=== PATIENT | female | born 1975 | race Caucasian/White ===

== ENCOUNTER → 2016-12-23 | Outpatient (CLI) | payer MEDICAID, OTHER ==
[~2016-12-23] MED LIST: ACHYD1T PO; DCS100C PO; IBP800T PO; PREN1TAB39 PO
--- NOTE | 2016-12-23 17:27 | Diagnostic Imaging Report ---
INDICATION: survey. TECHNIQUE: Multiple real-time grayscale images were obtained over the gravid uterus. COMPARISON: None FINDINGS: heart rate is 150 beats per minute. The placenta is anterior. There is no placenta previa. The cervix is long and closed. Its exact length is difficult to estimate related to overlying myometrial contraction. Adequate amniotic fluid is seen. survey evaluation demonstrates unremarkable appearance of the four-chamber view, stomach, two umbilical arteries, bladder, no ventriculomegaly, and normal appearance of the cord insertion. The spine is not well seen particularly at the mid and lower segments due to position. Biometrical measurements are as follows: Biparietal 5.11 cm, age 21 weeks 4 days. 23rd percentile. Head circumference 19.44 cm, age 21 weeks 5 days. 20th percentile. Abdominal circumference 15.66 cm, age 20 weeks 6 days. This is a the 9th percentile. Femur length 3.62 cm, age 21 weeks 4 days. At 19th percentile. Sonographic estimate age: 21 weeks 3 days. Sonographic estimated date of delivery: 05/02/2017. Estimated Weight: 405 gm (+/- 59 gm). LMP percentile: 9%. heart rate: 150 beats per minute. number: 1 of 1. IMPRESSION: The spine is not well seen due to position. Reevaluation within two weeks is suggested. Dictated by: Dictated on workstation # [id number]
== END ==
LOC: RAD 13:52
PROVIDERS: ATTEND Obstetrics & Gynecology
DX: Z36 Encounter for antenatal screening of mother (principal); Z3A.21 21 weeks gestation of pregnancy
CPT/HCPCS: 76805

== ENCOUNTER 2017-04-20 08:00 | Inpatient (IN) | payer MEDICAID ==
[2017-04-20] VITALS (80 sets, daily range): BP systolic 72–135; BP diastolic 40–90
[~2017-04-20] VITALS: Ht 167.6 cm; Wt 100.7 kg
[2017-04-20] MEDS ORDERED: D5 LR IV SOLUTION 1,000 ML IV ONE (08:23)
[2017-04-20] MEDS ORDERED: LACTATED RINGERS 1,000 ML IV ONE ×2 (09:29→10:33)
[2017-04-20 09:30] LABS: BASOPHILS % (AUTO) 0 % (0-10); EOSINOPHILS # (AUTO) 0.1 10^3/uL (0.0-0.3); EOSINOPHILS % (AUTO) 1 % (0-10); HEMATOCRIT 34 % (35-52); HEMOGLOBIN 11.5 G/DL (11.5-16.0); LYMPHOCYTES # (AUTO) 1.9 X 10^3 (1.0-4.0); LYMPHOCYTES % (AUTO) 24 % (12-44); MEAN CORPUSCULAR HEMOGLOBIN 28 PG (25-34); MEAN CORPUSCULAR HGB CONC 34 G/DL (32-36); MEAN CORPUSCULAR VOLUME 84 FL (80-99); MONOCYTES # (AUTO) 0.6 X 10^3 (0.0-1.0); MONOCYTES % (AUTO) 7 % (0-12); NEUTROPHILS # (AUTO) 5.5 X 10^3 (1.8-7.8); NEUTROPHILS % (AUTO) 68 % (42-75); PLATELET COUNT 157 10^3/uL (130-400); RED BLOOD COUNT 4.07 10^6/uL (4.35-5.85); RED CELL DISTRIBUTION WIDTH 14.4 % (10.0-14.5); WHITE BLOOD COUNT 8.1 10^3/uL (4.3-11.0)
[2017-04-20] MEDS ORDERED: MINERAL OIL CONCENTRATE 99.9% 15 ML UDC TOP PRN (09:30)
[2017-04-20] MEDS ORDERED: SUFENTA 0.6MCG/ML BUPIVA 0.125 100 ML ONE (09:56)
[2017-04-20] MEDS ORDERED: BUPIVACAINE 0.25% 30 ML (SENSORCAINE) VIAL ONE (10:04)
[2017-04-20] MEDS ORDERED: LIDOCAINE PF 2% 5 ML (XYLOCAINE) VIAL ONE (10:04)
[2017-04-20] MEDS ORDERED: fentaNYL INJECTION 100 MCG/2 ML AMP ONE (10:05)
[2017-04-20] MEDS: EPIDURAL (SUFENTA 0.6MCG/ML BUPIVA 0.125%) 100 ML BAG EPI PRN ×2 (10:31→17:52)
[2017-04-20] MEDS ORDERED: ONDANSETRON 4 MG/2 ML (SDV) Z0FRAN IV PRN (10:45)
[2017-04-20] MEDS ORDERED: NALOXONE 0.4 MG/ML 1 ML (NARCAN) VIAL IV PRN (10:45)
[2017-04-20] MEDS ORDERED: diphenhydrAMINE 50 MG/ML INJ (BENADRYL) IV PRN (10:45)
[2017-04-20] MEDS ORDERED: TERBUTALINE INJ 1 MG/ML (BRETHINE) AMP SC NR (11:00)
[2017-04-20] MEDS ORDERED: OXYTOCIN/NORMAL SALINE 500 ML IV ONE (11:19)
--- NOTE | 2017-04-20 14:07 | Operative Report ---
Operative Report Date of Procedure/Surgery Apr 20, 2017 Surgeon (s) ESTRELLA TREADWELL DO Director Of Online Education (s): Betty Rodriguez APRN Post-Operative Diagnosis malpresentation, third trimester. Procedure Performed External cephalic version Description of Procedure Anesthesia Type: EPI Estimated blood loss (mL): none Specimen(s) collected/removed none Description of the Procedure Patient presents for external cephalic version scheduled at 39 weeks. She was found to be breech/transverse in the office last week. Consents have been signed. Risks and benefits of this procedure including potential complications were explained and and outlined in the patient's chart. Patient is brought complications risks and consent were obtained with written consents and description and discussion. Patient's adult daughter also serves as networking specialist as needed. IV was started and IV bolus was given. Patient then had an epidural placed. As the plan is to induce following version if this is successful or proceed with if not. She has not breakfast. She was given 0.2 mg subcutaneous terbutaline. She was then placed in the supine position and position was confirmed with an ultrasound with the head in the right upper quadrant and the breech in the left lower quadrant confirming a breech/oblique presentation. She was placed in the right supine down position and pillows and wedges were used to keep her in this position. I then removed the monitors. well-being was very good prior to removing these. She was having no contractions. I then used cornstarch to lubricate the abdomen. Then gently pushed the head into the vertex presentation. This was confirmed with ultrasound. This took approximately 3 minutes. well-being was reassuring afterwards and there was no evidence of fluid or rupture, bleeding, uterine rupture, distress. Patient was now examined vaginally and cervix still 1 cm, but I was able to artificially rupture membranes and place a scalp electrode. Pitocin will be started for labor augmentation. Patient and baby tolerated procedure well. Findings of the Procedure 42 year old at 39 weeks with malpresentation of fetus at 39 weeks. Allergies and Home Medications Allergies Coded Allergies: No Known Drug Allergies (Unverified , 10/04/11) Home Medications Docusate Sodium 100 Mg Capsule, 100 MG PO BID, (Reported) Hydrocodone Bit/Acetaminophen 1 Tab Tablet, 1-2 TAB PO Q 3 HRS NEEDED, ( Reported) Ibuprofen 800 Mg Tab, 800 MG PO Q 6HRS NEEDED, (Reported) Vits W-Ca,Fe,Fa(<1MG) 1 Each Tablet, 1 EACH PO DAILY, (Reported) ESTRELLA TREADWELL DO Apr 20, 2017 2:06 pm
--- NOTE | 2017-04-20 14:10 | Progress Note-Standard ---
Standard Progress Note Progress Notes/Assess & Plan Date Seen by Provider: Apr 20, 2017 Time Seen by Provider: 12:00 Progress/Assessment & Plan approximately 1 hour after version, patient reported she thought the FSE had moved. Bedside US confirmed that the head was again in the RUQ. I was able to easily move the head back to the vertex presentation without distress. We then placed maternity belts/abdominal binders to keep the baby in position. Pitocin has been started. Fluid is clear. Final Diagnosis Breech with version ESTRELLA TREADWELL DO Apr 20, 2017 2:10 pm
[2017-04-20] MEDS: LACTATED RINGERS 1,000 ML IV SCH (15:15)
[2017-04-20] MEDS: CATHETER FLUSH 10 ML SYR IV SCH ×2 (15:18→22:00)
[2017-04-20] MEDS: D5 LR IV SOLUTION 1,000 ML IV SCH (16:24)
[2017-04-20] MEDS: PROPRANOLOL 1 MG/ML (INDERAL) INJ IV PRN ×3 (20:18→21:32)
[2017-04-21] VITALS (77 sets, daily range): BP systolic 99–144; BP diastolic 51–87
[2017-04-21] MEDS: EPIDURAL (SUFENTA 0.6MCG/ML BUPIVA 0.125%) 100 ML BAG EPI PRN ×3 (01:06→16:18)
[2017-04-21] MEDS ORDERED: INFLUENZA TRIvalent 2017-2018 0.5 ML/45 MCG SYR IM ONE (07:00)
[2017-04-21] MEDS: D5 LR IV SOLUTION 1,000 ML IV SCH ×3 (08:10→16:18)
[2017-04-21] MEDS ORDERED: OXYTOCIN/NORMAL SALINE 500 ML IV ONE (14:26)
[2017-04-21] MEDS ORDERED: AMPICILLIN/SULBACTAM INJECTION 3 GM in NS (IVPB) 100 ML IV SCH (17:00)
[2017-04-21] MEDS ORDERED: CITRIC ACID/SOB CIT (BICITRA) 30 ML UDC ONE (18:10)
[2017-04-21] MEDS ORDERED: METOCLOPRAMIDE INJ 10 MG/2 ML (REGLAN) ONE (18:10)
[2017-04-21] MEDS ORDERED: FAMOTIDINE 20MG/2ML IV (PEPCID) ONE (18:11)
[2017-04-21] MEDS: LACTATED RINGERS 1,000 ML IV SCH (18:15)
[2017-04-21] MEDS ORDERED: LACTATED RINGERS 1,000 ML IV PRN (18:21)
[2017-04-21] MEDS ORDERED: AZITHROMYCIN 500 MG (ZITHROMAX) VIAL ONE (18:25)
[2017-04-21] MEDS ORDERED: NS (IVPB) 100 ML ONE (18:25)
[2017-04-21] MEDS ORDERED: FAMOTIDINE 20MG/2ML IV (PEPCID) IV ONE (18:30)
[2017-04-21] MEDS ORDERED: METOCLOPRAMIDE INJ 10 MG/2 ML (REGLAN) IV ONE (18:30)
[2017-04-21] MEDS ORDERED: CITRIC ACID/SOB CIT (BICITRA) 30 ML UDC PO ONE (18:30)
[2017-04-21] MEDS ORDERED: AZITHROMYCIN INJECTION 500 MG in NS (IVPB) 250 ML IV ONE (18:30)
--- NOTE | 2017-04-21 18:31 | Progress Note-Standard ---
Standard Progress Note Progress Notes/Assess & Plan Date Seen by Provider: Apr 21, 2017 Time Seen by Provider: 08:30 Progress/Assessment & Plan Patient had regular contractions throughout the day yesterday. well being has been very reassuring. However, little to no cervical change. IV propranolol given 2 mg x 1, 1 hour apart due to protracted labor. this did not improve the dilation. Stopped Pitocin overnight to allow her to rest. Contractions almost sopped. This am Pitocin was restarted. Currently at 6 mu. Cervix 3/50/-2. well being reassuring. Continue augmentation. Patient still continues to decline section. ESTRELLA TREADWELL DO Apr 21, 2017 18:31
--- NOTE | 2017-04-21 18:33 | Progress Note-Standard ---
Standard Progress Note Progress Notes/Assess & Plan Date Seen by Provider: Apr 21, 2017 Time Seen by Provider: 13:30 Progress/Assessment & Plan Patient ruptured > 24 hours but no evidence of chorioamnionitis. 4 cm dilated/ 60% effaced. Continues to have regular contractions. well being continues to be reassuring. 26 mu of pitocin. Will continue augmentation. continues to decline section. ESTRELLA TREADWELL DO Apr 21, 2017 18:33
[2017-04-21] MEDS ORDERED: fentaNYL INJECTION 100 MCG/2 ML AMP ONE (18:36)
[2017-04-21] MEDS ORDERED: BUPIVACAINE 0.5% 30 ML (SENSORCAINE) VIAL ONE (18:36)
[2017-04-21] MEDS ORDERED: LIDOCAINE PF 2% 5 ML (XYLOCAINE) VIAL ONE ×2 (18:36→19:34)
--- NOTE | 2017-04-21 18:36 | Progress Note-Standard ---
Standard Progress Note Progress Notes/Assess & Plan Date Seen by Provider: Apr 21, 2017 Time Seen by Provider: 18:20 Progress/Assessment & Plan Ruptured > 24 hours, continues to contract regularly Pitocin 50 mu greater than 1 hour. 4 cm dilated. T 99. Unasyn started. Will plan primary section due to arrest of dilation. Risks, bleeding, infection, injury to bowel bladder ureter and fetus. Consent signed. Has received Unasyn. Will give 500 mg IV Zithromax Temp 99.3 heart tones 140s ESTRELLA TREADWELL DO Apr 21, 2017 18:36
[2017-04-21] MEDS ORDERED: KETAMINE HCL 100 MG/ML 5 ML VIAL ONE (18:38)
[2017-04-21] MEDS: KETOROLAC 30 MG/ML VIAL IVP SCH (19:30)
[2017-04-21] MEDS ORDERED: OXYTOCIN/NORMAL SALINE 1,000 ML IV ONE (19:33)
[2017-04-21] MEDS ORDERED: KETOROLAC 30 MG/ML VIAL ONE (19:33)
[2017-04-21] MEDS ORDERED: PHENYLEPHRINE 100 MCG/ML 10 ML (ANESTHESIA) SYR ONE (19:43)
[2017-04-21] MEDS ORDERED: D5 LR IV SOLUTION 1,000 ML IV SCH (19:55)
[2017-04-21] MEDS ORDERED: OXYTOCIN/NORMAL SALINE 500 ML IV SCH (19:55)
[2017-04-21] MEDS ORDERED: MEASLES,MUMPS,RUBELLA 1 EA INJ SC SCH (20:00)
[2017-04-21] MEDS ORDERED: ONDANSETRON 4 MG/2 ML (SDV) Z0FRAN IVP PRN (20:00)
[2017-04-21] MEDS ORDERED: TETANUS,DIPTH,PERTUSS P/F (BOOSTRIX) 0.5 ML VIAL IM SCH (20:00)
[2017-04-21] MEDS ORDERED: HYDROmorphone (DILAUDID) 2 MG/ML VIAL IVP PRN (20:00)
--- NOTE | 2017-04-21 20:01 | Operative Report ---
Operative Report Date of Procedure/Surgery Apr 21, 2017 Surgeon (s) ESTRELLA TREADWELL DO Web Applications Programmer (s): Betty Rodriguez APRN Post-Operative Diagnosis protracted labor, arrest of dilatation, advanced maternal age > 40 malpresentation/unstable lie, chorioramnionitis Procedure Performed Primary low transverse section Description of Procedure Anesthesia Type: EPI Estimated blood loss (mL): 750 Specimen(s) collected/removed none Description of the Procedure The patient was seen in pre-op and the procedure was discussed with the patient in full, including the risks, benefits, and alternatives. All questions were answered. Her daughter assisted with interpretation (patient is deaf).The patient was taken to the operating room and a time out was performed, verifying patient and procedure. After epidural anesthesia was redosed and found to be adequate by our anesthesia colleagues, the patient was placed in the dorsal supine with leftward tilt for uterine displacement.~ Her abdomen was then prepped and draped in the typical sterile fashion. A Pfannenstiel skin incision was made using a scalpel and carried down through the underlying fascia. The fascia was incised in the midline and tented up using Rosalva clamps. On both the inferior and superior fascia side the rectus muscle was dissected off bluntly and sharply using [place] scissors. The peritoneum was identified and entered bluntly in the midline. This was then stretched laterally using manual strength. After entering the abdominal cavity and confirming lack of intraperitoneal adhesions, a large Umberto retractor was placed and the lower uterine segment was visualized. A scalpel was utilized to make a low transverse uterine incision. The fetus had been breech and had successful version. Abdominal binders were used to keep fetus in cephalic presentation. When cervix was checked most recently, fetus was still in cephalic presentation. However, the abdominal binder was removed. The infantwas now noted to be in the transverse back up presentation. The head was grasped and brought to the level of the incision. Silastic suction was placed on the head facilitating delivery of the head. Fundal pressure was applied and infant was delivered without difficulty. Mouth and nares were suctioned with bulb suction. After the umbilical cord was clamped and cut, the was handed off to the pediatric staff. Baby was vigorous and crying. A sample of cord blood was then obtained. The placenta was delivered intact via uterine massage. The uterus was exteriorized and cleared of all clots and debris. The uterine incision was closed using 0 Vicryl in a running locked fashion. A second imbricated layer was placed using 0 Vicryl in a running fashion as well. The uterus was flexed forward and the posterior rectouterine space was inspected and cleared of all clots and debris. Again the hysterotomy site was examined and hemostasis was observed. The bilateral tubes and ovaries appeared normal. The uterus was placed back into the abdominal cavity and abdominal gutters were cleared of all clots and debris. A final check of the uterine incision showed it to be hemostatic. The abdomen was copiously irrigated. The peritoneum was closed using 3-0 Vicryl in a running fashion. The fascia was closed with 0 Vicryl in a running fashion. The subcutaneous space was hemostatic, and irrigated. The subcutaneous space was closed with 3-0 Vicryl in several single interrupted stitches. The skin was then closed using 4-0 Monocryl in a running subcuticular fashion. The skin edges were reapproximated together and were hemostatic. A pressure dressing was applied. All sponge, lap and needle counts were correct at the end of the procedure per nursing. Findings of the Procedure viable female 10/03 8#9oz transverse back up Allergies and Home Medications Allergies Coded Allergies: No Known Drug Allergies (Unverified , 10/04/11) Home Medications Docusate Sodium 100 Mg Capsule, 100 MG PO BID, (Reported) Hydrocodone Bit/Acetaminophen 1 Tab Tablet, 1-2 TAB PO Q 3 HRS NEEDED, ( Reported) Ibuprofen 800 Mg Tab, 800 MG PO Q 6HRS NEEDED, (Reported) Vits W-Ca,Fe,Fa(<1MG) 1 Each Tablet, 1 EACH PO DAILY, (Reported) ESTRELLA TREADWELL DO Apr 21, 2017 20:01
[2017-04-21] MEDS: HYDROcodone/APAP 5 MG/325 MG (LORTAB) TAB PO PRN (21:33)
[2017-04-21] MEDS: DOCUSATE SODIUM 100 MG (COLACE) CAP PO SCH (21:33)
[2017-04-22] MEDS: KETOROLAC 30 MG/ML VIAL IVP SCH ×2 (01:18→09:15)
[2017-04-22] MEDS: AMPICILLIN/SULBACTAM INJECTION 3 GM in NS (IVPB) 100 ML IV SCH ×2 (01:19→09:15)
[2017-04-22 01:25] VITALS: BP 112/59
[2017-04-22 06:05] VITALS: BP 123/71
[2017-04-22 06:09] LABS: BASOPHILS % (AUTO) 0 % (0-10); EOSINOPHILS # (AUTO) 0.1 10^3/uL (0.0-0.3); EOSINOPHILS % (AUTO) 1 % (0-10); HEMATOCRIT 27 % (35-52); HEMOGLOBIN 8.9 G/DL (11.5-16.0); LYMPHOCYTES # (AUTO) 1.7 X 10^3 (1.0-4.0); LYMPHOCYTES % (AUTO) 15 % (12-44); MEAN CORPUSCULAR HEMOGLOBIN 28 PG (25-34); MEAN CORPUSCULAR HGB CONC 33 G/DL (32-36); MEAN CORPUSCULAR VOLUME 86 FL (80-99); MEAN PLATELET VOLUME 10.8 FL (7.4-10.4); MONOCYTES # (AUTO) 0.6 X 10^3 (0.0-1.0); MONOCYTES % (AUTO) 5 % (0-12); NEUTROPHILS % (AUTO) 79 % (42-75); PLATELET COUNT 129 10^3/uL (130-400); RED BLOOD COUNT 3.18 10^6/uL (4.35-5.85); RED CELL DISTRIBUTION WIDTH 14.5 % (10.0-14.5); WHITE BLOOD COUNT 11.3 10^3/uL (4.3-11.0)
[2017-04-22] MEDS: HYDROcodone/APAP 5 MG/325 MG (LORTAB) TAB PO PRN ×4 (06:39→21:35)
--- NOTE | 2017-04-22 08:54 | Postpartum Progress Note ---
Post Op Post-operative Day #1 s/p PLTCS , arrest of dilation Subjective: Patient is without complaints. Ambulating, voiding after schafer removed. Tolerating a regular diet without nausea or vomiting. Normal lochia. Pain is well controlled with oral pain medications. Passing flatus. breast feeding. [] Objective: Laboratory Tests Test 04/22/17 05:47 Range/Units White Blood Count 11.3 H 4.3-11.0 10^3/uL Red Blood Count 3.18 L 4.35-5.85 10^6/uL Hemoglobin 8.9 #L 11.5-16.0 G/DL Hematocrit 27 L 35-52 % Mean Corpuscular Volume 86 80-99 FL Mean Corpuscular Hemoglobin 28 25-34 PG Mean Corpuscular Hemoglobin Concent 33 32-36 G/DL Red Cell Distribution Width 14.5 10.0-14.5 % Platelet Count 129 L 130-400 10^3/uL Mean Platelet Volume 10.8 H 7.4-10.4 FL Neutrophils (%) (Auto) 79 H 42-75 % Lymphocytes (%) (Auto) 15 12-44 % Monocytes (%) (Auto) 5 0-12 % Eosinophils (%) (Auto) 1 0-10 % Basophils (%) (Auto) 0 0-10 % Neutrophils # (Auto) 9.0 H 1.8-7.8 X 10^3 Lymphocytes # (Auto) 1.7 1.0-4.0 X 10^3 Monocytes # (Auto) 0.6 0.0-1.0 X 10^3 Eosinophils # (Auto) 0.1 0.0-0.3 10^3/uL Basophils # (Auto) 0.0 0.0-0.1 10^3/uL Vital Sign - Last 12Hours 04/21/17 04/21/17 04/22/17 04/22/17 21:00 22:18 01:25 06:05 Temp 97.2 96.5 97.8 Pulse 108 100 93 Resp B/P (MAP) 109/62 (78) 112/59 (76) 123/71 (88) Pulse Ox 97 96 99 O2 Delivery Room Air Room Air Room Air Room Air Intake and Output 04/22/17 00:00 Intake Total 500 ml Output Total 1010 ml Balance -510 ml Physical Exam: General - Alert and oriented, no apparent distress Abdomen - Soft, appropriately tender to palpation, non-distended, fundus firm at umbilicus Incision - clean, dry and intact; no erythema or induration, no drainage Extremities - no edema, negative Kirit's bilaterally [] Assessment: 1. post-operative day # 1, status post PLTCS. Recovering well, hemodynamically stable 2. Acute blood loss anemia Plan: Routine post-operative care. Encourage breast feeding. Encourage ambulation. VTE prophylaxis: SCDs. Ferrous sulfate supplementation. Plan for discharge Wednesday or . Vitals - Labs Vital Signs - I&O Vital Signs Date Time Temp Pulse Resp B/P (MAP) Pulse Ox O2 Delivery O2 Flow Rate FiO2 04/22/17 06:05 97.8 93 18 123/71 (88) 99 Room Air 04/22/17 01:25 96.5 100 18 112/59 (76) 96 Room Air 04/21/17 22:18 Room Air 04/21/17 21:00 97.2 108 18 109/62 (78) 97 Room Air 04/21/17 18:45 117 20 144/87 (106) Room Air 04/21/17 18:35 99.5 04/21/17 18:30 111 20 139/69 (92) Room Air 04/21/17 18:15 102 20 132/63 (86) Room Air 04/21/17 18:00 89 18 134/68 (90) 99 Room Air 04/21/17 17:45 98.7 100 18 129/77 (94) 100 Room Air 04/21/17 17:30 89 18 120/61 (80) 98 Room Air 04/21/17 17:15 95 18 126/64 (84) 100 Room Air 04/21/17 17:03 99.3 04/21/17 17:00 88 18 116/58 (77) 100 Room Air 04/21/17 16:45 83 18 129/58 (81) 100 Room Air 04/21/17 16:30 99.3 83 18 106/58 (74) 98 Room Air 04/21/17 16:15 85 18 106/56 (73) 97 Room Air 04/21/17 16:00 86 18 104/57 (73) 96 Room Air 04/21/17 15:45 83 18 104/57 (73) 97 Room Air 04/21/17 15:30 99.3 96 18 122/64 (83) 99 Room Air 04/21/17 15:15 102 18 122/64 (83) 99 Room Air 04/21/17 15:00 96 18 117/55 (75) 98 Room Air 04/21/17 14:45 94 18 124/59 (80) 98 Room Air 04/21/17 14:30 93 18 120/63 (82) 98 Room Air 04/21/17 14:15 111 18 129/59 (82) 97 Room Air 04/21/17 14:00 99 18 125/55 (78) 99 Room Air 04/21/17 13:45 98.7 100 18 136/64 (88) 100 Room Air 04/21/17 13:30 91 18 112/60 (77) 100 Room Air 04/21/17 13:15 91 18 112/60 (77) 100 Room Air 04/21/17 13:00 88 18 115/65 (82) 100 Room Air 04/21/17 12:45 90 18 110/63 (79) 99 Room Air 04/21/17 12:30 97.2 86 18 122/63 (82) 98 Room Air 04/21/17 12:15 88 18 104/65 (78) 96 Room Air 04/21/17 12:00 81 18 105/64 (78) 92 Room Air 04/21/17 11:45 80 18 104/62 (76) 96 Room Air 04/21/17 11:30 88 18 100/65 (77) 98 Room Air 04/21/17 11:15 87 18 102/59 (73) 97 Room Air 04/21/17 11:00 85 18 107/58 (74) 98 Room Air 04/21/17 10:45 98.1 85 18 111/65 (80) 98 Room Air 04/21/17 10:30 84 18 108/64 (79) 96 Room Air 04/21/17 10:15 84 18 108/64 (79) 96 Room Air 04/21/17 10:00 96 18 108/64 (79) 98 Room Air 04/21/17 09:45 86 18 107/65 (79) 99 Room Air 04/21/17 09:30 86 18 112/56 (74) 99 Room Air 04/21/17 09:15 81 18 116/61 (79) 99 Room Air 04/21/17 09:00 86 18 123/57 (79) 100 Room Air I & O 04/22/17 07:00 Intake Total 2300 ml Output Total 1310 ml Balance 990 ml Labs Laboratory Tests 04/22/17 05:47: White Blood Count 11.3H, Red Blood Count 3.18L, Hemoglobin 8.9#L, Hematocrit 27L , Mean Corpuscular Volume 86, Mean Corpuscular Hemoglobin 28, Mean Corpuscular Hemoglobin Concent 33, Red Cell Distribution Width 14.5, Platelet Count 129L, Mean Platelet Volume 10.8H, Neutrophils (%) (Auto) 79H, Lymphocytes (%) (Auto) 15, Monocytes (%) (Auto) 5, Eosinophils (%) (Auto) 1, Basophils (%) (Auto) 0, Neutrophils # (Auto) 9.0H, Lymphocytes # (Auto) 1.7, Monocytes # (Auto) 0.6, Eosinophils # (Auto) 0.1, Basophils # (Auto) 0.0 ESTRELLA TREADWELL DO Apr 22, 2017 08:54
[2017-04-22 09:15] VITALS: BP 116/68
[2017-04-22] MEDS: FERROUS SULF 325 MG (IRON) TAB PO SCH (09:15)
[2017-04-22] MEDS: DOCUSATE SODIUM 100 MG (COLACE) CAP PO SCH ×2 (09:15→21:23)
[2017-04-22 14:05] VITALS: BP 114/64
--- NOTE | 2017-04-22 14:28 | Anesthesia-Regional Post-Op ---
Regional Patient Condition Mental Status: Alert, Oriented x3 Circulation: Same as Pre-Op Headache: Absent Sensation: Full Recovery Motor Block: Absent Post Op Complications Complications None Follow Up Care/Instructions Patient Instructions None needed. Anesthesia/Patient Condition Patient is doing well, no complaints, stable vital signs, no apparent adverse anesthesia problems. Epidural used for C/S without complications, pt ambulating without difficulty. DENISE OLIVAREZ DO Apr 22, 2017 14:28
[2017-04-22 16:45] VITALS: BP 111/68
[2017-04-22] MEDS: IBUPROFEN 600 MG (MOTRIN) TAB PO SCH (17:15)
[2017-04-22 21:25] VITALS: BP 115/65
[2017-04-23 00:15] VITALS: BP 120/70
[2017-04-23 01:15] VITALS: BP 120/70
[2017-04-23] MEDS: IBUPROFEN 600 MG (MOTRIN) TAB PO SCH ×5 (01:15→20:37)
[2017-04-23] MEDS: HYDROcodone/APAP 5 MG/325 MG (LORTAB) TAB PO PRN ×3 (01:55→23:43)
[2017-04-23 06:10] VITALS: BP 107/63
[2017-04-23] MEDS: FERROUS SULF 325 MG (IRON) TAB PO SCH ×4 (08:55→17:49)
[2017-04-23] MEDS: DOCUSATE SODIUM 100 MG (COLACE) CAP PO SCH ×2 (08:56→20:36)
[2017-04-23 11:20] VITALS: BP 121/81
[2017-04-23 15:51] VITALS: BP 151/86
[2017-04-23] MEDS: D5 LR IV SOLUTION 1,000 ML IV SCH (17:48)
[2017-04-23] MEDS: CATHETER FLUSH 10 ML SYR IV SCH (17:48)
[2017-04-23 20:37] VITALS: BP 125/83
[2017-04-24] MEDS: IBUPROFEN 600 MG (MOTRIN) TAB PO SCH ×5 (03:09→23:37)
[2017-04-24 03:13] VITALS: BP 129/76
[2017-04-24 08:45] VITALS: BP 122/71
[2017-04-24] MEDS: DOCUSATE SODIUM 100 MG (COLACE) CAP PO SCH ×2 (08:52→23:37)
[2017-04-24] MEDS: FERROUS SULF 325 MG (IRON) TAB PO SCH ×2 (08:52→23:37)
[2017-04-24] MEDS: HYDROcodone/APAP 5 MG/325 MG (LORTAB) TAB PO PRN ×2 (08:53→13:23)
[2017-04-24 13:25] VITALS: BP 131/72
--- NOTE | 2017-04-24 13:31 | Postpartum Progress Note ---
Post Op Patient seen and examined on 04/23/17 at 0900 Post-operative Day #2 s/p PLTCS Baby will not dc home today due to GBS, hyperbilirubinemia Subjective: Patient is without complaints. Ambulating, voiding after schafer removed. Tolerating a regular diet without nausea or vomiting. Normal lochia. Pain is well controlled with oral pain medications. Passing flatus. breast feeding. [ Physical Exam: General - Alert and oriented, no apparent distress Abdomen - Soft, appropriately tender to palpation, non-distended, fundus firm at umbilicus Incision - clean, dry and intact; no erythema or induration, no drainage Extremities - no edema, negative Kirit's bilaterally Assessment: 1 post-operative day # 2, status post RLTCS. Recovering well, hemodynamically stable 2. Acute blood loss anemia - hgb 8.9. VSS stable Plan: Routine post-operative care. Encourage breast feeding. Encourage ambulation. VTE prophylaxis: SCDs. Ferrous sulfate supplementation. Plan for discharge tomorrow Vitals - Labs Vital Signs - I&O Vital Signs Date Time Temp Pulse Resp B/P (MAP) Pulse Ox O2 Delivery O2 Flow Rate FiO2 04/24/17 13:25 98.7 85 18 131/72 (91) 98 Room Air 04/24/17 08:45 98.4 92 18 122/71 (88) 97 Room Air 04/24/17 03:13 97.7 85 20 129/76 (93) 98 Room Air 04/23/17 20:37 97.6 78 20 125/83 (97) 98 Room Air 04/23/17 15:51 98.4 107 20 151/86 (107) I & O 04/24/17 07:00 Intake Total 3600 ml Balance 3600 ml ESTRELLA TREADWELL DO Apr 24, 2017 13:31
--- NOTE | 2017-04-24 13:33 | Progress Note-Standard ---
Standard Progress Note Progress Notes/Assess & Plan Date Seen by Provider: Apr 24, 2017 Time Seen by Provider: 13:30 Progress/Assessment & Plan Baby not discharged. Baby dc to parent room Continued on antibiotics x 24 hours after delivery due to low grade chorioamnionitis and ROM > 18 hours. Patient contineus to do well pp. Vital Sign - Last 12Hours 04/24/17 04/24/17 04/24/17 03:13 08:45 13:25 Temp 97.7 98.4 98.7 Pulse 85 92 85 Resp 18 B/P (MAP) 129/76 (93) 122/71 (88) 131/72 (91) Pulse Ox 98 97 98 O2 Delivery Room Air Room Air Room Air Intake and Output 04/24/17 00:00 Intake Total 2100 ml Balance 2100 ml Inc C/D/I DC home ESTRELLA TREADWELL DO Apr 24, 2017 13:32
[2017-04-24] MEDS ORDERED: FERR325T18 PO (13:34)
[2017-04-24] MEDS ORDERED: DOCU100C37 PO (13:34)
[2017-04-24] MEDS ORDERED: IBUP-1773 PO (13:34)
[2017-04-24] MEDS ORDERED: ACHD5005 PO (13:34)
--- NOTE | 2017-04-24 13:37 | Discharge Inst-Women's Service ---
Discharge Inst-Women's Serv Depart Medication/Instructions New, Converted or Re-Newed RX: RX on Chart Instructions no lifting over 25 lbs Final Diagnosis malpresentation arrest of dilation Advanced maternal age acute blood loss anemia Consults/Follow Up Additional Follow Up: Yes (1 week inc check and 6 week pp exam.) Activity Activity: Activity as Tolerated Driving Instructions: No Driving for 1 Week NO SMOKING: NO SMOKING Nothing Inside Vagina: No Douching, No [place], No Tampons Diet Discharge Diet: No Restrictions Symptoms to Report to : Swelling Increased, Bleeding Excessive, Pain Increased, Fever Over 101 Degrees F, Vaginal Bleeding Increase, Cramps in Feet or Legs, Vaginal Discharge Foul For Any Problems or Questions: Contact Your Physician Skin/Wound Care Infection Signs and Symptoms: Increased Redness, Foul Odor of Wound, Increased Drainage, Skin Itchy or Has a Rash, Increased Swelling, Temperature Above 101 F Operative Area Clean and Dry: Keep Incision Clean/Dry Stitches/[place]/Dermabond: Dermabond Bathing Instructions: ESTRELLA Hills DO Apr 24, 2017 13:36
[2017-04-24 18:30] VITALS: BP 124/70
[2017-04-24 23:37] VITALS: BP 142/69
== END 2017-04-24 23:37 | disposition home or self-care (01) | DRG 765 ==
LOC: LDRP 08:00 → WS 04-21 20:50
PROVIDERS: ADMIT Obstetrics & Gynecology; ATTEND Obstetrics & Gynecology
PROC: 10S0XZZ Reposition Products of Conception, External Approach (ICD-10-PCS; principal; 2017-04-20)
PROC: 10D00Z1 Extraction of Products of Conception, Low, Open Approach (ICD-10-PCS; 2017-04-21)
DX: O32.1XX0 Maternal care for breech presentation, not applicable or unspecified (principal); O41.1230 Chorioamnionitis, third trimester, not applicable or unspecified; O99.03 Anemia complicating the puerperium; D62 Acute posthemorrhagic anemia; O32.2XX0 Maternal care for transverse and oblique lie, not applicable or unspecified; O61.0 Failed medical induction of labor; O75.5 Delayed delivery after artificial rupture of membranes; Z3A.39 39 weeks gestation of pregnancy; Z37.0 Single live birth
CPT/HCPCS: 36415; 85025; 86850; 86900; 86901; 94664